=== PATIENT | male | born 1995 | race Caucasian/White ===

== ENCOUNTER 2018-01-12 19:45 | Emergency (ER) | payer BC ==
[~2018-01-12 19:45] MED LIST: MAGICPED SWISH-SWAL
[2018-01-12 20:16] VITALS: BP 116/84; PULSE 97; RESP 16; TEMP 98.8; O2SAT 100
--- NOTE | 2018-01-12 20:53 | RADRPT ---
EXAM DATE/TIME: 01/12/2018 20:31 [facility] COMPARISON: No previous studies available for comparison. INDICATIONS : Right clavicle pain, evaluate for shortness of breath and free air. MEDICAL HISTORY : None. SURGICAL HISTORY : None. ENCOUNTER: Initial ACUITY: 1 day PAIN SCORE: 8/10 LOCATION: Right chest FINDINGS: PA and lateral views of the chest demonstrate the lungs to be symmetrically aerated without evidence of mass, infiltrate or effusion. The cardiomediastinal contours are unremarkable. Osseous structure s are intact. No free air seen in the upper abdomen. CONCLUSION: No evidence of acute cardiopulmonary disease. No free air seen in the upper abdomen. Imtiaz Burgess MD on January 12, 2018 at 20:51 Board Certified Radiologist. This report was verified electronically.
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
[2018-01-13] MEDS ORDERED: IBUPROFEN 600 MG TAB PO ONE (00:45)
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
[2018-01-13] MEDS ORDERED: TRAM50TA PO (01:06)
[2018-01-13] MEDS ORDERED: traMADol HCL 50 MG TAB PO ONE (01:15)
== END 2018-01-13 01:20 | disposition home or self-care (01) ==
LOC: NEPD 19:45
DX: S40.011A Contusion of right shoulder, initial encounter (principal); V86.56XA Driver of dirt bike or motor/cross bike injured in nontraffic accident, initial encounter
CPT/HCPCS: 71046; 73030; 99283